=== PATIENT | female | born 1960 | race Caucasian/White ===

== ENCOUNTER 2019-07-13 17:08 | Emergency (ER) | payer OTHER ==
[~2019-07-13] VITALS: Ht 152.4 cm; Wt 69.4 kg
[2019-07-13] MEDS ORDERED: ACCUNEB SO1.25 MG/1 INH (17:15)
[2019-07-13] MEDS ORDERED: IBUPROFEN 800800 M1 PO (17:16)
[2019-07-13] MEDS ORDERED: LISINOPRIL10 MG PO (17:17)
[2019-07-13] MEDS ORDERED: AMITRIPTYLINE H10 M3 PO (17:17)
[2019-07-13] MEDS ORDERED: NEURONTIN600 MG PO (17:18)
[2019-07-13] MEDS ORDERED: HYDROCHLOROTH12.5 M1 PO (17:18)
[2019-07-13] MEDS ORDERED: SYMBICORT160 MCG/4. INH (17:19)
[2019-07-13 17:33] LABS: ABSOLUTE BASOPHILS 0.1 thou/uL (0.0-0.2); ABSOLUTE EOSINOPHILS 0.2 thou/uL (0.0-0.7); ABSOLUTE LYMPHOCYTES 3.1 thou/uL (0.8-5.3); ABSOLUTE MONOCYTES 0.9 thou/uL (0.0-1.2); ABSOLUTE NEUTROPHILS 6.7 thou/uL (1.6-8.1); BASOPHILS 1.1 %; EOSINOPHILS 2.1 %; HEMATOCRIT 43.1 % (37.0-47.0); HEMOGLOBIN 14.2 gm/dL (12.0-15.0); LYMPHOCYTES 28.3 %; MCH 28.5 pg (26.0-34.0); MCV 86.4 fL (80.0-100.0); MONOCYTES 7.9 %; MPV 7.5 fl. (7.2-11.1); NUCLEATED RBCS 0 /100WBC; PLATELET COUNT* 305 thou/uL (150-400); POLYS 60.6 %; RBC 4.99 mil/uL (4.20-5.00); RDW-CV 13.9 % (10.5-14.5)
[2019-07-13 17:49] LABS: CALCIUM 10.3 mg/dL (8.5-10.1); CREATININE 0.7 mg/dL (0.6-1.3); POTASSIUM 3.9 mmol/L (3.5-5.1)
[2019-07-13 18:04] LABS: ALBUMIN 3.8 g/dL (3.4-5.0); TOTAL BILIRUBIN 0.2 mg/dL (<0.1-1.0)
[2019-07-13] MEDS ORDERED: PREDNISONE 20 M20 M1 PO (18:55)
[2019-07-13] MEDS ORDERED: BENZONATATE200 MG PO (18:55)
[2019-07-13] MEDS ORDERED: VENTOLIN HFA 1818 GM INH (18:55)
[2019-07-13 19:02] VITALS: BP 113/74
--- NOTE | 2019-07-14 16:20 | EKG ---
[place] [address] ELECTROCARDIOGRAM REPORT Name: DIEUDONNE MEDINA Room: 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 : 1960 Requested By: Ирина Finch Order Number: [id number] MD: Clive Tafoya Measurements Intervals [place] Rate: 95 P: 52 MA: 149 QRS: 32 QRSD: 122 T: 24 QT: 368 QTc: 463 Interpretive Statements Sinus rhythm Right bundle branch block Baseline wander in lead(s) II,III,aVL,aVF,V1,V3,V4,V5 No previous ECG available for comparison Electronically Signed On 07-14-2019 16:20:06 CDT by Clive Tafoya [email or web address] <ELECTRONICALLY SIGNED> By: Clive Tafoya MD, [facility] 07/14/19 1620 1715 171 Clive Tafoya MD, [facility] /EPI
== END 2019-07-13 19:03 | disposition home or self-care (01) ==
LOC: M.ERS 17:08
PROVIDERS: Nurse Practitioner Family
DX: J45.901 Unspecified asthma with (acute) exacerbation (principal); I10 Essential (primary) hypertension; Z90.710 Acquired absence of both cervix and uterus; Z98.890 Other specified postprocedural states

== ENCOUNTER 2021-01-12 09:55 | Emergency (ER) | payer OTHER ==
[~2021-01-12] VITALS: Ht 152.4 cm; Wt 77.1 kg
[~2021-01-12 09:55] MED LIST: ACCUNEB SO1.25 MG/1 INH; AMITRIPTYLINE H10 M3 PO; BENZONATATE200 MG PO; HYDROCHLOROTH12.5 M1 PO; IBUPROFEN 800800 M1 PO; LISINOPRIL10 MG PO; NEURONTIN600 MG PO; PREDNISONE 20 M20 M1 PO; SYMBICORT160 MCG/4. INH; VENTOLIN HFA 1818 GM INH
[2021-01-12] MEDS ORDERED: BUPROPION XL300 MG PO (10:04)
[2021-01-12] MEDS ORDERED: ESTROGEN PATCH (10:04)
[2021-01-12 10:32] LABS: ABSOLUTE EOSINOPHILS 0.3 thou/uL (0.0-0.7); ABSOLUTE LYMPHOCYTES 3.7 thou/uL (0.8-5.3); ABSOLUTE MONOCYTES 0.6 thou/uL (0.0-1.2); ABSOLUTE NEUTROPHILS 5.7 thou/uL (1.6-8.1); BASOPHILS 0.2 %; EOSINOPHILS 2.8 %; HEMATOCRIT 43.4 % (37.0-47.0); HEMOGLOBIN 14.2 gm/dL (12.0-15.0); LYMPHOCYTES 36.2 %; MCH 28.3 pg (26.0-34.0); MCHC 32.8 g/dL (28.0-37.0); MCV 86.5 fL (80.0-100.0); MONOCYTES 5.9 %; MPV 7.4 fl. (7.2-11.1); NUCLEATED RBCS 0 /100WBC; PLATELET COUNT* 323 thou/uL (150-400); POLYS 54.9 %; RBC 5.02 mil/uL (4.20-5.00); WBC 10.4 thou/uL (4.0-11.0)
[2021-01-12] MEDS ORDERED: PREDNISONE 20 M20 M1 PO (10:59)
[2021-01-12 11:04] VITALS: BP 108/78
[2021-01-12 11:35] LABS: CALCIUM 9.2 mg/dL (8.5-10.1); CREATININE 0.9 mg/dL (0.6-1.3); POTASSIUM 3.5 mmol/L (3.5-5.1)
[2021-01-12 11:42] LABS: ALBUMIN 3.5 g/dL (3.4-5.0); TOTAL BILIRUBIN 0.3 mg/dL (<0.1-1.0); TOTAL PROTEIN 7.9 g/dL (6.4-8.2)
== END 2021-01-12 11:07 | disposition home or self-care (01) ==
LOC: M.ERS 09:55
PROVIDERS: Family Medicine
DX: J45.901 Unspecified asthma with (acute) exacerbation (principal); Z20.822 Contact with and (suspected) exposure to COVID-19; I10 Essential (primary) hypertension; Z90.711 Acquired absence of uterus with remaining cervical stump; Z98.890 Other specified postprocedural states; Z79.899 Other long term (current) drug therapy